=== PATIENT | male | born 1970 | race Two or more races ===

== ENCOUNTER 2018-07-01 12:41 | Emergency (ER) | payer SELFPAY ==
[~2018-07-01] VITALS: Ht 172.7 cm; Wt 95.0 kg
[2018-07-01 13:45] VITALS: BP 114/80
[2018-07-01] MEDS ORDERED: KETOROLAC 60MG/2ML VIAL IM ONE (13:45)
== END 2018-07-01 16:56 | disposition home or self-care (01) ==
LOC: ER 12:41
DX: J40 Bronchitis, not specified as acute or chronic (principal); R07.89 Other chest pain; J02.9 Acute pharyngitis, unspecified; Z98.890 Other specified postprocedural states
CPT/HCPCS: 71045; 87070; 87430; 96372; 99284; J1885; Z7610